=== PATIENT | male | born 1975 | race Caucasian/White ===

== ENCOUNTER → 2017-10-03 | Outpatient (CLI) | payer OTHER | LOC: AMB 09:08 | PROVIDERS: ATTEND Nurse Practitioner | DX: Z02.9 Encounter for administrative examinations, unspecified (principal) ==

== ENCOUNTER → 2017-10-03 | Outpatient (CLI) | payer OTHER | LOC: AMB 04:31 | PROVIDERS: ATTEND Nurse Practitioner | DX: R06.02 Shortness of breath (principal); R07.9 Chest pain, unspecified; R06.2 Wheezing; R14.0 Abdominal distension (gaseous); V49.88XA Car occupant (driver) (passenger) injured in other specified transport accidents, initial encounter; Y92.411 Interstate highway as the place of occurrence of the external cause | CPT/HCPCS: A0425; A0433 ==

== ENCOUNTER → 2017-10-03 | Emergency (ER) | payer OTHER ==
[~2017-10-03] MED LIST: DIPHTH/TETANUS/ACEL. PERTUSSIS IM ONE; KETAMINE HCL 500 MG/5 ML VIAL ONE; NS(*) 0.9% 100 ML BAG 0 ML ONE; NS(*) 0.9% 250 ML BAG 250 ML IVPB SCH; NS(*) 0.9% 250 ML BAG 250 ML ONE; NS(*) 0.9% 500 ML BAG 250 ML IV ONE; PROPOFOL EMUL 10MG/ML 20 ML VL IV ONE; PROPOFOL EMUL 10MG/ML 20 ML VL IVP ONE; ROCURONIUM BROM 10 MG/ML 10 ML IVP ONE; fentaNYL CITR 100 MCG/2 ML AMP IVP ONE; fentaNYL CITR 100 MCG/2 ML AMP ONE
[2017-10-03 07:33] LABS: PLATELET COUNT, AUTOMATED 203 K/uL (150-450)
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
[2017-10-03 07:45] LABS: INR 1.28
--- NOTE | 2017-10-03 08:35 | RADIOLOGY IMAGING REPORT ---
[place] [facility] [place] NAME: Trupti Wadsworth : 1975 MR: [id number] V: [id number] EXAM DATE: ORDERING PHYSICIAN: JLUIS HOLLAND TECHNOLOGIST: Location: [facility] [place] Patient: Trupti Wadsworth : 1975 Visit/Account:[id number] Date of Sevice: 10/03/2017 EXAMINATION: CT Head without intravenous contrast CT Cervical spine without intravenous contrast HISTORY: Trauma. TECHNIQUE: Head: Axial images were obtained from the skull base to the vertex without intravenous contrast. Sa gittal and coronal reformatted images are also submitted. Cervical spine: Axial images were obtained from the skull base through the upper thoracic spine with out IV contrast administration. Coronal and sagittal reformatted images were obtained from the axial source data. One of the following dose optimization techniques was utilized in the performance of this exam: Autom ated exposure control; adjustment of the mA and/or kV according to the patient's size; or use of an i terative reconstruction technique. Specific details can be referenced in the facility's radiology C T exam operational policy. COMPARISON: None available. FINDINGS: HEAD: Brain volume: Normal. Ventricles: Negative. Acute ischemic changes: None. Hemorrhage: None. Masses / edema: None. Vanegas-white: Negative. White matter: Negative. Vessels: Negative. Extra-axial: Negative. Calvarium / skull base: Extensive soft tissue gas in the face. The or nasogastric tube is coiled in the pharynx. Visualized sinuses / orbits: Mild mucosal thickening in the maxillary sinuses with 1.9 cm retention cyst or polyp in the right maxillary sinus. CERVICAL SPINE: Alignment: Mild convex rightward curvature. Cranio-cervical junction: Negative. Vertebral bodies: Negative. Posterior elements: Negative. Hardware: None. Disc Spaces: Multilevel degenerative disc disease, most severe at C5-C6. Soft tissues: Extensive soft tissue gas throughout the neck. No prevertebral soft tissue swelling. Visualized upper chest: Partially imaged right pleural effusion and patchy opacities in the lung apic es. Pneumomediastinum. IMPRESSION: 1. No acute intracranial abnormality. 2. No acute cervical spine fracture. 3. Extensive soft tissue gas in the neck and face. 4. Partially imaged patchy opacities in the lung apices with right pleural effusion. 5. Mild multilevel degenerative disc disease in the cervical spine, most severe at C5-C6. Report Dictated By: Chet Addison MD at 10/03/2017 8:11 AM Report E-Signed By: Chet Addison MD at 10/03/2017 8:31 AM WSN:[id number]
--- NOTE | 2017-10-03 08:35 | RADIOLOGY IMAGING REPORT ---
[place] [facility] [place] NAME: Trupti Wadsworth : 1975 MR: [id number] V: [id number] EXAM DATE: ORDERING PHYSICIAN: JLUIS HOLLAND TECHNOLOGIST: [place] [facility] [place] Trupti Wadsworth : 1975 Visit/Account:[id number] Date of Sevice: 10/03/2017 EXAMINATION: CT Head without intravenous contrast CT Cervical spine without intravenous contrast HISTORY: Trauma. TECHNIQUE: Head: Axial images were obtained from the skull base to the vertex without intravenous contrast. Sa gittal and coronal reformatted images are also submitted. Cervical spine: Axial images were obtained from the skull base through the upper thoracic spine with out IV contrast administration. Coronal and sagittal reformatted images were obtained from the axial source data. One of the following dose optimization techniques was utilized in the performance of this exam: Autom ated exposure control; adjustment of the mA and/or kV according to the patient's size; or use of an i terative reconstruction technique. Specific details can be referenced in the facility's radiology C T exam operational policy. COMPARISON: None available. FINDINGS: HEAD: Brain volume: Normal. Ventricles: Negative. Acute ischemic changes: None. Hemorrhage: None. Masses / edema: None. Vanegas-white: Negative. White matter: Negative. Vessels: Negative. Extra-axial: Negative. Calvarium / skull base: Extensive soft tissue gas in the face. The or nasogastric tube is coiled in the pharynx. Visualized sinuses / orbits: Mild mucosal thickening in the maxillary sinuses with 1.9 cm retention cyst or polyp in the right maxillary sinus. CERVICAL SPINE: Alignment: Mild convex rightward curvature. Cranio-cervical junction: Negative. Vertebral bodies: Negative. Posterior elements: Negative. Hardware: None. Disc Spaces: Multilevel degenerative disc disease, most severe at C5-C6. Soft tissues: Extensive soft tissue gas throughout the neck. No prevertebral soft tissue swelling. Visualized upper chest: Partially imaged right pleural effusion and patchy opacities in the lung apic es. Pneumomediastinum. IMPRESSION: 1. No acute intracranial abnormality. 2. No acute cervical spine fracture. 3. Extensive soft tissue gas in the neck and face. 4. Partially imaged patchy opacities in the lung apices with right pleural effusion. 5. Mild multilevel degenerative disc disease in the cervical spine, most severe at C5-C6. Report Dictated By: Chet Addison MD at 10/03/2017 8:11 AM Report E-Signed By: Chet Addison MD at 10/03/2017 8:31 AM WSN:[id number]
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
--- NOTE | 2017-10-03 08:40 | Procedure Note ---
Chest Tube Procedure Note Reason for Chest Tube Hemopneumothorax Consent Signed: No Chest Tube Location: Left Lung Complications: None Chest Tube Suction: Pleura-Vac Chest Tube Secured: 0 Silk Suture Post Procedure Xray Ordered: Yes Comment Left chest tube place through incision made by prehospital personnel in field. Pt intubated and sedated and tube emergent so no consent signed and no local used. Dr. Salmon placed the right chest tube, see his notes for details. CHERIE PERDOMO MD Oct 03, 2017 08:40
--- NOTE | 2017-10-03 09:25 | RADIOLOGY IMAGING REPORT ---
FACILITY: [facility] PATIENT NAME: Trupti Wadsworth : 1975 MR: [id number] V: [id number] EXAM DATE: ORDERING PHYSICIAN: DANA JENKINS TECHNOLOGIST: Location: [facility] Patient: Trupti Wadsworth : 1975 Visit/Account:[id number] Date of Sevice: 10/03/2017 EXAMINATION: CT Thoracic spine without intravenous contrast HISTORY: Trauma COMPARISON: None. TECHNIQUE: Axial, sagittal and coronal images reformatted from the chest abdomen and pelvis CT. One of the following dose optimization techniques was utilized in the performance of this exam: autom ated exposure control; adjustment of the mA and/or kV according to patient size; or use of iterative reconstruction technique. Specific details can be referenced in the facility's radiology CT exam ope rational policy. FINDINGS: Disc space heights are normal. Slight left-sided vertebral body height loss at T5, coronal image 43 with a tiny cortical lucency wit hin the upper T5 endplate in this region, coronal image 43. Vertebral body heights are otherwise normal. Normal alignment. Anterior endplate spurring at T8-9 through T11-12 noted. Acute nondisplaced right fifth transverse process fracture. Acute medial right second, third, sixth, seventh, eighth, ninth, and 10th rib fractures. Acute anteri or right second and third rib fractures are visible. Extensive neck and chest wall soft tissue gas. Pneumomediastinum also noted. Endotracheal tube with P rocrit tip position. An enteric tube is present which extends into the stomach with tip not imaged. Bilateral chest tubes. Small right and omxak-vg-dghkokfi sized left pneumothorax. Bilateral upper lob e consolidative contusions. Potential moderate size right and small left pleural effusions. 4.3 cm focal ovoid hemorrhage within or adjacent to the right adrenal gland. Fat stranding in the rig ht retroperitoneum just inferior to this finding adjacent to the right renal pelvis region. IMPRESSION: 1. Minimal left-sided T5 wedge compression deformity is concerning for an acute fracture. 2. Acute nondisplaced right T5 transverse process fracture. 3. Multiple acute medial and anterior right rib fractures. 4. Bilateral upper lobe pulmonary contusions. 5. Potential moderate right right and small left pleural effusions. 6. Small right and omnvh-mk-jcwtdqjl sized left pneumothoraxes. Bilateral chest tubes. 7. Extensive chest wall and neck soft tissue gas. Pneumomediastinum. 8. Acute 4.3 cm hemorrhage within or adjacent to the right adrenal gland. Report Dictated By: Dave Betts MD at 10/03/2017 9:03 AM Report E-Signed By: Dave Betts MD at 10/03/2017 9:22 AM WSN:[email or web address]
[2017-10-03 09:28] VITALS: BP 105/73
--- NOTE | 2017-10-03 09:55 | RADIOLOGY IMAGING REPORT ---
FACILITY: [facility] PATIENT NAME: Trupti Wadsworth : 1975 MR: [id number] V: [id number] EXAM DATE: ORDERING PHYSICIAN: JLUIS HOLLAND TECHNOLOGIST: [place] [facility] [place] Trupti Wadsworth : 1975 Visit/Account:[id number] Date of Sevice: 10/03/2017 ADDENDUM #2 The L3 vertebral body and posterior element findings may alternatively represent a benign hemangioma. Report Dictated By: Dave Betts MD at 10/03/2017 10:39 AM Report E-Signed By: Dave Betts MD at 10/03/2017 10:39 AM ADDENDUM #1 Addendum: Acute left L1 and L2 transverse process fractures also noted. The right sacroiliac joint is also likely mildly traumatically widened. Report Dictated By: Dave Betts MD at 10/03/2017 9:59 AM Report E-Signed By: Dave Betts MD at 10/03/2017 9:59 AM ORIGINAL REPORT EXAMINATION: CT chest, abdomen and pelvis without contrast HISTORY: Trauma TECHNIQUE: CT was obtained through the chest, abdomen and pelvis without intravenous contrast. One of the following dose optimization techniques was utilized in the performance of this exam: autom ated exposure control; adjustment of the mA and/or kV according to patient size; or use of iterative reconstruction technique. Specific details can be referenced in the facility's radiology CT exam ope rational policy. COMPARISON: None. FINDINGS: Chest: Lower neck: Extensive soft tissue gas extends into the chest wall soft tissues. Heart /pericardium/aorta/great vessels: Normal. Mediastinum: Pneumomediastinum. Endotracheal tube has appropriate tip position. An enteric tube has t ip in the stomach. Lymph node assessment: Normal. Pleura: Potential moderate sized right and small left pleural effusions not well characterized withou t contrast. Small right and fcjdc-aa-wqvusevq sized left pneumothoraces. Bilateral chest tubes. Lungs: Bilateral upper lobe consolidative pulmonary contusions. Compressive atelectasis in the right greater than left lower lobes. Chest wall: Extensive soft tissue gas. Musculoskeletal: Acute nondisplaced right T5 transverse process fracture. Minimal left-sided T5 like ly acute wedge compression fracture with a tiny cortical fracture lucency within the left upper T5 en dplate. Left lateral third, fourth, fifth, sixth, seventh, eighth, ninth acute rib fractures are minimally di splaced. Acute right anterior second, third rib fractures. Acute medial right third rib fracture. Acute medial right sixth, seventh, eighth, ninth, 10th rib fra ctures a few of which are mildly displaced. Abdomen/pelvis: Spleen: Trace perisplenic fluid. Adrenal glands: Fat stranding surrounds the left adrenal gland. The right adrenal gland is not clearl y visualized in keeping with acute adrenal gland hemorrhage. Approximate 4.3 cm right adrenal gland r egion ovoid dense probable hemorrhage. Pancreas: Normal. Kidneys: Normal left kidney. Edema adjacent to the right renal pelvis region and adjacent to the infe rior vena cava in this region, axial image 131. Gallbladder: Normal. Liver: Dense hemorrhage in the right upper paracolic gutter adjacent to the liver measures 3.7 cm. No discrete hepatic laceration. Vessels: The right adrenal region hemorrhage partially surrounds the upper abdominal IVC. Lymph node assessment: Normal. Bowel including small bowel, colon and appendix: Normal stomach. Mild dilatation of the mid abdominal small bowel loops without apparent wall thickening. Normal appendix. No colonic abnormality. Peritoneum / retroperitoneum / mesentery: Normal. Pelvic structures: Normal bladder. A Lopez catheter is present within the bladder lumen. Normal pr ostate and normal rectum. Presacral edema or hemorrhage measures 1.7 cm AP dimension. No cul-de-sac f luid. No adenopathy. Fat stranding/hemorrhage in the right greater than left pelvic sidewall region a nd within the extraperitoneal space adjacent to the bladder rel abilio to pelvic bone fractures. Body wall: Right common femoral vein central line with tip in the external iliac vein region. Left lateral flank subcutaneous fat contusion.Musculoskeletal: Acute nondisplaced left pubic body fra cture. Abnormally widened left sacroiliac joint. Slightly displaced acute right inferior pubic ramus fracture. Slightly displaced right superior pubic ramus fracture. Fracture involving the anterior asp ect of the right acetabulum, axial image 214. Acute fracture involving the right lateral aspect of the sacrum. Acute left L3 nondisplaced transverse process fracture. Potentially chronic mild L3 wedge compression deformity. Diffuse trabecular thickening and sclerosis throughout the L3 vertebral body, transverse processes and posterior elements.The L3 vertebral body i s expanded chronically in the AP dimension with resultant severe apparent chronic canal narrowing at the L3 level. IMPRESSION: 1. Extensive lower neck and chest wall subcutaneous gas. Pneumomediastinum. 2. Small right and hmosv-cl-atzcxlqz sized left pneumothoraces. Bilateral chest tubes. 3. Bilateral upper lobe pulmonary contusions. 4. Potential moderate sized right and small left pleural effusions not well characterized without IV contrast. 5. Likely acute minimal left T5 wedge compression fracture. Acute right T5 transverse process fractur e. 6. Left lateral third through ninth rib fractures. 7. Acute medial right third and 6th through 10 rib fractures. 8. Acute right anterior second and third rib fractures.
--- NOTE | 2017-10-03 10:02 | RADIOLOGY IMAGING REPORT ---
FACILITY: [facility] [place] PATIENT NAME: Trupti Wadsworth : 1975 MR: [id number] V: [id number] EXAM DATE: ORDERING PHYSICIAN: DANA JENKINS TECHNOLOGIST: Location: [facility] Patient: Trupti Wadsworth : 1975 Visit/Account:[id number] Date of Sevice: 10/03/2017 ADDENDUM #2 The L3 vertebral body and posterior element findings may alternatively represent a benign hemangioma. Report Dictated By: Dave Betts MD at 10/03/2017 10:39 AM Report E-Signed By: Dave Betts MD at 10/03/2017 10:40 AM ADDENDUM #1 Addendum: Left L2 transverse process fracture also noted which is better visualized on the abdomen an d pelvis CT. Report Dictated By: Dave Betts MD at 10/03/2017 10:00 AM Report E-Signed By: Dave Betts MD at 10/03/2017 10:00 AM ORIGINAL REPORT EXAMINATION: CT Lumbar spine without intravenous contrast HISTORY: Trauma COMPARISON: None. TECHNIQUE: Axial, sagittal and coronal lumbar spine images were reformatted from the chest, abdomen a nd pelvis CT One of the following dose optimization techniques was utilized in the performance of this exam: autom ated exposure control; adjustment of the mA and/or kV according to patient size; or use of iterative reconstruction technique. Specific details can be referenced in the facility's radiology CT exam ope rational policy. FINDINGS: Mild age-indeterminate L3 wedge compression deformity. The L3 vertebral body is chronically expanded in the AP dimension. There is diffuse trabecular thickening and sclerosis involving the L3 vertebral body, posterior elements and transverse process. This results in severe chronic canal narrowing at th e L3 level which is not well characterized by CT. Acute left L1 (see coronal image 63) and left L3 transverse process fractures. No additional lumbar fracture identified. Right sacral fracture. Left greater than right sacroiliac joint widening. CT abdomen and pelvis CT for extraspinal details and regarding pelvic bone fractures. IMPRESSION: Acute left L1 and L3 transverse process fractures. Mild age-indeterminate L3 vertebral body wedging which may be chronic. Diffuse abnormal trabecular thickening and sclerosis throughout the L3 vertebral body, posterior [place] ents and transverse processes which may represent Paget's disease. The L3 vertebral body is chronical ly expanded in the AP dimension which results in severe chronic canal narrowing. Report Dictated By: Dave Betts MD at 10/03/2017 9:52 AM Report E-Signed By: Dave Betts MD at 10/03/2017 9:58 AM WSN:[email or web address]
[2017-10-03] MEDS: PROPOFOL(*)1000 MG/100 ML VIAL 100 ML IV PRN ×2 (12:31→12:57)
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
== END ==
LOC: ER 07:04 → CANBEDREQ 09:41
DX: S27.2XXA Traumatic hemopneumothorax, initial encounter (principal); S27.322A Contusion of lung, bilateral, initial encounter; S32.511A Fracture of superior rim of right pubis, initial encounter for closed fracture; S32.592A Other specified fracture of left pubis, initial encounter for closed fracture; V49.9XXA Car occupant (driver) (passenger) injured in unspecified traffic accident, initial encounter
CPT/HCPCS: 32551; 36569; 70450; 71045; 71250; 72125; 72128; 72131; 72170; 74176; 80320; 81001; 82150; 82803; 83605; 83690; 85025; 85610; 85730; 86850; 86900; 86901; 86920; 90715; 93005; 96361; 96365; 96375; 96376; 99285; A7048; J2704; J3010; J7050; P9016; 82040; 82247; 82310; 82374; 82435; 82565; 82947; 84075; 84132; 84155; 84295; 84450; 84460; 84520